=== PATIENT | female | born 1990 | race Caucasian/White ===

== ENCOUNTER 2023-04-24 19:25 | Emergency (ER) | payer MEDICAID ==
[~2023-04-24] VITALS: Ht 172.7 cm; Wt 59.0 kg
[2023-04-24 21:49] VITALS: BP 110/60; TEMP 98.1; O2SAT 98
[2023-04-24] MEDS ORDERED: IBUP-1955 PO (21:50)
[2023-04-24] MEDS ORDERED: CYCL10TA9 PO (21:50)
== END 2023-04-24 21:54 | disposition home or self-care (01) ==
LOC: ER 19:28
DX: S16.1XXA Strain of muscle, fascia and tendon at neck level, initial encounter (principal); S29.012A Strain of muscle and tendon of back wall of thorax, initial encounter; Z79.899 Other long term (current) drug therapy; V43.92XA Unspecified car occupant injured in collision with other type car in traffic accident, initial encounter; Y93.89 Activity, other specified; Y92.89 Other specified places as the place of occurrence of the external cause; Y99.8 Other external cause status
CPT/HCPCS: 72050-TC; 72074-TC